=== PATIENT | male | born 1985 | race Two or more races ===

== ENCOUNTER 2023-01-30 22:28 | Emergency (ER) | payer MEDICAID, OTHER ==
[~2023-01-30] VITALS: Ht 172.7 cm; Wt 113.6 kg
[2023-01-30] MEDS ORDERED: HYDROmorphone HCL 2 MG/ML VL/or syr IM ONE (23:00)
[2023-01-30] MEDS ORDERED: ONDANSETRON ODT 4 MG TAB PO ONE (23:00)
[2023-01-30] MEDS ORDERED: IOHEXOL 300 MG/ML 100ML BOTTLE IJ ONE (23:25)
[2023-01-30 23:49] LABS: Basophils # (auto) 0.1 10 ^3/uL (0-0.2); Basophils % (auto) 1.2 % (0.0-2.0); Eosinophils # (auto) 0.1 10 ^3/uL (0-0.8); Hematocrit 44.3 % (41.0-53.0); Hemoglobin 14.9 g/dL (13.5-17.5); Lymphocytes # (auto) 2.4 10 ^3/uL (0.4-5.4); Lymphocytes % (auto) 34.2 % (10.0-50.0); Mean Corpuscular Hemoglobin 29.3 pg (28.0-32.0); Mean Corpuscular Hgb Conc. 33.6 g/dL (32.0-36.0); Mean Corpuscular Volume 87.2 fL (80.0-100.0); Monocytes # (auto) 0.5 10 ^3/uL (0-1.3); Monocytes % (auto) 6.8 % (0.0-12.0); Neutrophils # (auto) 4.1 10 ^3/uL (1.6-8.6); Neutrophils % (auto) 56.8 % (37.0-80.0); Nucleated Red Blood Cells % 0.3 %; Red Blood Cells 5.08 10^6/uL (4.5-5.90); Red Cell Distribution Width 13.4 % (11.8-14.3); White Blood Cell 7.1 10^3/uL (4.4-10.8)
[2023-01-31 00:04] LABS: BUN/Creatinine Ratio 7.4 (10.0-20.0); Calcium 9.2 mg/dL (8.5-10.1); Potassium 3.4 mmol/L (3.5-5.1)
[2023-01-31 00:16] LABS: Bilirubin, Total 1.3 mg/dL (0.2-1.0); Total Protein 7.6 g/dL (6.4-8.2)
[2023-01-31] MEDS ORDERED: oxyCODONE ER 10 MG TAB PO ONE (01:00)
[2023-01-31] MEDS ORDERED: diazePAM 2 MG TAB PO ONE (01:00)
[2023-01-31] MEDS ORDERED: DIA5T PO (01:55)
[2023-01-31] MEDS ORDERED: OXYC-629 PO (01:55)
[2023-01-31 02:59] VITALS: BP 132/81
== END 2023-01-31 03:47 | disposition home or self-care (01) ==
LOC: ER 22:28
DX: K62.89 Other specified diseases of anus and rectum (principal); Z88.8 Allergy status to other drugs, medicaments and biological substances
CPT/HCPCS: 36415; 74177; 80053; 83690; 85025; 96372; 99285; J1170; Q0162; Q9967